=== PATIENT | male | born 1980 ===

== ENCOUNTER → 2021-08-11 | Day surgery (SDC) | payer OTHER | END | disposition home or self-care (01) | LOC: ADM 08-07 13:45 → CIR.AMB 11:09 | PROVIDERS: ATTEND Surgery | DX: R15.9 Full incontinence of feces (principal); K57.30 Diverticulosis of large intestine without perforation or abscess without bleeding; F41.0 Panic disorder [episodic paroxysmal anxiety]; M79.7 Fibromyalgia; E78.00 Pure hypercholesterolemia, unspecified; Z88.2 Allergy status to sulfonamides; Z79.4 Long term (current) use of insulin; M19.90 Unspecified osteoarthritis, unspecified site; K76.0 Fatty (change of) liver, not elsewhere classified; E66.9 Obesity, unspecified; F41.1 Generalized anxiety disorder; E10.9 Type 1 diabetes mellitus without complications | CPT/HCPCS: 64581; 95972; C1778 ==